=== PATIENT | male | born 1950 | race Caucasian/White ===

== ENCOUNTER 2017-11-19 09:25 | Emergency (ER) | payer MEDICARE, OTHER ==
[~2017-11-19] VITALS: Ht 175.3 cm; Wt 102.1 kg
[2017-11-19 10:14] LABS: BASO % 1 % (0-3); EOS # 0.1 x10^3/uL (0.0-0.7); EOS % 1 % (0-3); HEMATOCRIT 39.6 % (39.0-53.0); HEMOGLOBIN 13.1 g/dL (13.0-17.5); LYMPH # 1.2 x10^3/uL (1.0-4.8); LYMPH % 25 % (24-48); MEAN CORPUSCULAR HEMOGLOBIN 28 pg (25-35); MEAN CORPUSCULAR HGB CONC 33 g/dL (31-37); MEAN CORPUSCULAR VOLUME 84 fL (79-100); MONO # 0.4 x10^3/uL (0.0-1.1); MONO % 9 % (0-9); NEUT # 3.1 x10^3uL (1.8-7.7); NEUT % 64 % (31-73); PLATELET COUNT 210 x10^3/uL (140-400); RED BLOOD COUNT 4.71 x10^6/uL (4.30-5.70); WHITE BLOOD COUNT 4.9 x10^3/uL (4.0-11.0)
[2017-11-19 10:22] LABS: CALCIUM 9.2 mg/dL (8.5-10.1); CREATININE 1.5 mg/dL (0.7-1.3); MAGNESIUM 1.8 mg/dL (1.8-2.4); POTASSIUM 4.1 mmol/L (3.5-5.1)
--- NOTE | 2017-11-19 11:32 | PHYS DOC ---
Past History Past Medical History: Diabetes, Hypertension Past Surgical History: No Surgical History Alcohol Use: None Drug Use: None Adult General Chief Complaint Chief Complaint: MULTIPLE COMPLAINTS HPI HPI Patient is a 67 year old M who presents with generalized fatigue. Da states that over the past 2 months he has become increasingly tired. He denies focal weakness however he describes generalized weakness. He states that he occasionally has mild shortness of breath with activity but is not associated with pain. He states that occasionally he does have aching pain in his left upper arm but is not persistent. He has normal bowel and bladder patterns. He has no new medications. He takes no [id number] medications or supplements. He denies any other associated symptoms. He denies any exacerbating or relieving factors. Review of Systems Review of Systems Constitutional: Denies fever or chills [] Eyes: Denies change in visual acuity, redness, or eye pain [] HENT: Denies nasal congestion or sore throat [] Respiratory: Denies cough or shortness of breath [] Cardiovascular: No additional information not addressed in HPI [] GI: Denies abdominal pain, nausea, vomiting, bloody stools or diarrhea [] : Denies dysuria or hematuria [] Musculoskeletal: Denies back pain or joint pain [] Integument: Denies rash or skin lesions [] Neurologic: Denies headache, focal weakness or sensory changes [] Endocrine: Denies polyuria or polydipsia [] All other systems were reviewed and found to be within normal limits, except as documented in this note. Family History Family History No pertinent family medical history was reported Current Medications Current Medications Current medications were reviewed Allergies Allergies Allergies Coded Allergies Type Severity Reaction Last Updated Verified No Known Drug Allergies 11/19/17 No Physical Exam Physical Exam Constitutional: Well developed, well nourished, no acute distress, non-toxic appearance. [] HENT: Normocephalic, atraumatic, bilateral external ears normal, oropharynx moist, no oral exudates, nose normal. [] Eyes: PERRLA, EOMI, conjunctiva normal, no discharge. [] Neck: Normal range of motion, no tenderness, supple, no stridor. [] Cardiovascular:Heart rate regular rhythm, no murmur [] Lungs & Thorax: Bilateral breath sounds clear to auscultation [] Abdomen: Bowel sounds normal, soft, no tenderness, no masses, no pulsatile masses. [] Skin: Warm, dry, no erythema, no rash. [] Back: No tenderness, no CVA tenderness. [] Extremities: No tenderness, no cyanosis, no clubbing, ROM intact, no edema. [] Neurologic: Alert and oriented X 3, normal motor function, normal sensory function, no focal deficits noted. [] Psychologic: Affect normal, judgement normal, mood normal. [] Current Patient Data Vital Signs Vital Signs Date Time Temp Pulse Resp B/P (MAP) Pulse Ox O2 Delivery O2 Flow Rate FiO2 11/19/17 11:00 62 18 120/74 (89) 99 Room Air 11/19/17 09:47 98.1 Lab Results Laboratory Tests Test 11/19/17 10:04 White Blood Count 4.9 x10^3/uL (4.0-11.0) Red Blood Count 4.71 x10^6/uL (4.30-5.70) Hemoglobin 13.1 g/dL (13.0-17.5) Hematocrit 39.6 % (39.0-53.0) Mean Corpuscular Volume 84 fL (79-100) Mean Corpuscular Hemoglobin 28 pg (25-35) Mean Corpuscular Hemoglobin Concent 33 g/dL (31-37) Red Cell Distribution Width 15.0 % (11.5-14.5) H Platelet Count 210 x10^3/uL (140-400) Neutrophils (%) (Auto) 64 % (31-73) Lymphocytes (%) (Auto) 25 % (24-48) Monocytes (%) (Auto) 9 % (0-9) Eosinophils (%) (Auto) 1 % (0-3) Basophils (%) (Auto) 1 % (0-3) Neutrophils # (Auto) 3.1 x10^3uL (1.8-7.7) Lymphocytes # (Auto) 1.2 x10^3/uL (1.0-4.8) Monocytes # (Auto) 0.4 x10^3/uL (0.0-1.1) Eosinophils # (Auto) 0.1 x10^3/uL (0.0-0.7) Basophils # (Auto) 0.0 x10^3/uL (0.0-0.2) Sodium Level 141 mmol/L (136-145) Potassium Level 4.1 mmol/L (3.5-5.1) Chloride Level 108 mmol/L (98-107) H Carbon Dioxide Level 27 mmol/L (21-32) Anion Gap 6 (6-14) Blood Urea Nitrogen 17 mg/dL (8-26) Creatinine 1.5 mg/dL (0.7-1.3) H Estimated GFR (Cockcroft-Gault) 47.0 Glucose Level 194 mg/dL (70-99) H Calcium Level 9.2 mg/dL (8.5-10.1) Magnesium Level 1.8 mg/dL (1.8-2.4) EKG EKG [] Radiology/Procedures Radiology/Procedures [] Course & Med Decision Making Course & Med Decision Making Pertinent Labs and Imaging studies reviewed. (See chart for details) [] Dragon Disclaimer Dragon Disclaimer This electronic medical record was generated, in whole or in part, using a voice recognition dictation system. Departure Departure: Impression: Primary Impression: Encounter for medical screening examination Disposition: 01 HOME, SELF-CARE Condition: STABLE Referrals: NON,STAFF (PCP) Patient Instructions: Medical Screening Exam Additional Instructions: Da was seen in the emergency department for generalized symptoms. No emergency medical condition was found on history or physical exam. He did have normal labs. He was advised follow-up with his primary care doctor as needed for further management. ROSA FAITH MD Nov 19, 2017 11:32
[2017-11-19 11:41] VITALS: BP 137/86
== END 2017-11-19 11:43 | disposition home or self-care (01) ==
LOC: ER 09:25
DX: R53.83 Other fatigue (principal); R06.02 Shortness of breath; R53.1 Weakness; E11.9 Type 2 diabetes mellitus without complications; I10 Essential (primary) hypertension
CPT/HCPCS: 36415; 80048; 83735; 85025; 99284

== ENCOUNTER 2018-09-10 19:10 | Emergency (ER) | payer MEDICARE, OTHER ==
[~2018-09-10] VITALS: Ht 175.3 cm; Wt 102.1 kg
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
[2018-09-10] MEDS ORDERED: IV NORMAL SALINE 1,000ML 1,000 ML IV SCH (19:44)
--- NOTE | 2018-09-10 19:59 | EKG ---
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
[2018-09-10 20:28] LABS: BASO # 0.1 x10^3/uL (0.0-0.2); BASO % 1 % (0-3); EOS % 1 % (0-3); HEMATOCRIT 37.6 % (39.0-53.0); HEMOGLOBIN 12.3 g/dL (13.0-17.5); LYMPH # 1.6 x10^3/uL (1.0-4.8); LYMPH % 23 % (24-48); MEAN CORPUSCULAR HEMOGLOBIN 28 pg (25-35); MEAN CORPUSCULAR HGB CONC 33 g/dL (31-37); MEAN CORPUSCULAR VOLUME 85 fL (79-100); MONO # 0.7 x10^3/uL (0.0-1.1); MONO % 11 % (0-9); NEUT # 4.5 x10^3uL (1.8-7.7); NEUT % 65 % (31-73); PLATELET COUNT 230 x10^3/uL (140-400); RED BLOOD COUNT 4.43 x10^6/uL (4.30-5.70); RED CELL DISTRIBUTION WIDTH 14.5 % (11.5-14.5); WHITE BLOOD COUNT 6.9 x10^3/uL (4.0-11.0)
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
[2018-09-10 20:39] LABS: CLARITY,URINE CLEAR; COLOR,URINE STRAW
[2018-09-10 20:40] LABS: BACTERIA,URINE 0 /HPF (0-FEW); BILIRUBIN,URINE NEG (NEG); GLUCOSE,URINE NEG (NEG); NITRITE,URINE NEG (NEG); RBC,URINE OCC /HPF (0-2); SQUAMOUS EPITHELIAL CELL,UR FEW /LPF; UROBILINOGEN,URINE 0.2 mg/dL (0.2 mg/dL)
[2018-09-10 20:45] LABS: ALBUMIN 3.7 g/dL (3.4-5.0); AMPHETAMINE/METHAMPHETAMINE NEG (NEG); BARBITURATES NEG (NEG); BENZODIAZEPINES NEG (NEG); CANNABINOIDS NEG (NEG); COCAINE NEG (NEG); METHADONE NEG (NEG); OPIATES NEG (NEG); PHENCYCLIDINE NEG (NEG); POTASSIUM 4.2 mmol/L (3.5-5.1)
[2018-09-10 21:13] LABS: CALCIUM 9.4 mg/dL (8.5-10.1); CREATININE 1.5 mg/dL (0.7-1.3); DIRECT BILIRUBIN 0.1 mg/dL (0.0-0.2); GFR 46.8; TOTAL BILIRUBIN 0.2 mg/dL (0.2-1.0); TOTAL PROTEIN 7.5 g/dL (6.4-8.2)
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
[2018-09-10 22:20] VITALS: BP 142/76
== END 2018-09-10 22:27 | disposition home or self-care (01) ==
LOC: ER 19:10
DX: R51 Headache (principal); M54.2 Cervicalgia; R42 Dizziness and giddiness; D64.9 Anemia, unspecified; R79.89 Other specified abnormal findings of blood chemistry; R94.5 Abnormal results of liver function studies; E11.9 Type 2 diabetes mellitus without complications; I10 Essential (primary) hypertension; V43.52XA Car driver injured in collision with other type car in traffic accident, initial encounter; Y93.I9 Activity, other involving external motion; Y92.488 Other paved roadways as the place of occurrence of the external cause; Y99.8 Other external cause status
CPT/HCPCS: 36415; 70450; 71046; 72125; 80048; 80076; 80307; 81001; 82550; 83735; 83880; 84484; 85025; 85610; 85730; 86705; 86709; 86803; 87340; 93005; 96360; 99284-25; J7030

== ENCOUNTER 2018-12-12 19:15 | Emergency (ER) | payer MEDICARE, OTHER ==
[~2018-12-12] VITALS: Ht 175.3 cm; Wt 104.3 kg
--- NOTE | 2018-12-12 19:22 | ED.ADGEN ---
Past History Past Medical History: Diabetes, Hypertension, Other Past Surgical History: Other Alcohol Use: None Drug Use: None Adult General Chief Complaint Chief Complaint ".. I got this pain down below..here where I had my prior hernia surgery... maybe 15 yrs. ago... but I was carrying up some gross crease of the stairs 2 days ago and the pain came back the same spot almost.. and it has not gone away..." HPI HPI Patient is a 68 year old male who presents with above hx and complaints of right groin pain for the past 2 days after caring some heavy groceries up stairs. Patient has had previous hernia repair and repair approximately 15 years ago. Patient localizes pain in same location. No other areas of abdomen pain. There is some tenderness in the upper abductor muscles of right leg. No adenopathy. Testicles are nontender. No obvious hernia in 2: Area. Does have some fullness along the anterior area of the lower groin and scar from previous hernia repair. Patient denies any penile discharge. Patient denies any fevers. Patient denies any travel or specific ill contacts. Patient does have history of diabetes, glaucoma, renal insufficiency. Review of Systems Review of Systems Constitutional: Denies fever or chills [] Eyes: Denies change in visual acuity, redness, or eye pain [] HENT: Denies nasal congestion or sore throat [] Respiratory: Denies cough or shortness of breath [] Cardiovascular: No additional information not addressed in HPI [] GI: Patient has complaints of right lower abdominal pain,. Patient denies nausea , vomiting, bloody stools or diarrhea [] : Denies dysuria or hematuria [] Musculoskeletal: Denies back pain or joint pain [] Integument: Denies rash or skin lesions [] Neurologic: Denies headache, focal weakness or sensory changes [] Endocrine: Denies polyuria or polydipsia [] All other systems were reviewed and found to be within normal limits, except as documented in this note. Family History Family History Noncontributory Current Medications Current Medications Current Medications Medications (Trade) Dose Ordered Sig/Db Start Time Stop Time Status Last Admin Dose Admin Famotidine (Pepcid Vial) 20 mg 1X ONCE 12/12/18 20:15 12/12/18 20:16 DC Iohexol (Omnipaque 240 Mg/ml) 30 ml 1X ONCE 12/12/18 20:30 12/12/18 20:31 DC 12/12/18 21:32 30 ML Iohexol (Omnipaque 300 Mg/ml) 75 ml 1X ONCE 12/12/18 20:30 12/12/18 20:31 DC 12/12/18 21:33 75 ML Lactated Ringer's 1,000 ml @ 1,000 mls/hr Q1H 12/12/18 20:00 12/12/18 20:59 DC 12/12/18 21:00 1,000 MLS/HR Magnesium Hydroxide (Milk Of Magnesia) 2,400 mg 1X ONCE 12/12/18 21:30 12/12/18 21:31 DC 12/12/18 21:30 2,400 MG Morphine Sulfate (Morphine 10mg Syringe) 10 mg 1X ONCE 12/12/18 20:15 12/12/18 20:16 DC 12/12/18 21:06 10 MG Ondansetron HCl (Zofran) 8 mg 1X ONCE 12/12/18 20:15 12/12/18 20:16 DC 12/12/18 21:07 8 MG Allergies Allergies Allergies Coded Allergies Type Severity Reaction Last Updated Verified No Known Drug Allergies 12/12/18 No Physical Exam Physical Exam Constitutional: Moderately acute distress, non-toxic appearance. [] HENT: Normocephalic, atraumatic, bilateral external ears normal, oropharynx moist, no oral exudates, nose normal. [] Eyes: PERRLA, EOMI, conjunctiva normal, no discharge. [] Neck: Normal range of motion, no tenderness, supple, no stridor. [] Cardiovascular: Bradycardia Heart rate regular rhythm, no murmur [] Lungs & Thorax: Bilateral breath sounds with apex auscultation [] Abdomen: Bowel sounds normal, soft, no upper abdomen tenderness, no masses, no pulsatile masses. [] Patient does have right lower groin tenderness at site of prior hernia repair. No penile discharge. Testicles are not tender. Skin: Warm, dry, no erythema, no rash. [] Back: No tenderness, no CVA tenderness. [] Extremities: No tenderness, no cyanosis, no clubbing, ROM intact, no edema. [] No true psoas sign. But there is some tenderness of the abductor muscles insertion site of right upper groin Neurologic: Alert and oriented X 3, normal motor function, normal sensory function, no dose focal deficits noted. [] Psychologic: Affect anxious, judgement normal, mood normal. [] Current Patient Data Vital Signs Vital Signs Date Time Temp Pulse Resp B/P (MAP) Pulse Ox O2 Delivery O2 Flow Rate FiO2 12/12/18 21:06 18 96 12/12/18 19:35 98.7 61 Room Air Lab Results Laboratory Tests Test 12/12/18 20:06 12/12/18 20:30 White Blood Count 5.6 x10^3/uL (4.0-11.0) Red Blood Count 4.27 x10^6/uL (4.30-5.70) L Hemoglobin 11.7 g/dL (13.0-17.5) L Hematocrit 36.5 % (39.0-53.0) L Mean Corpuscular Volume 85 fL (79-100) Mean Corpuscular Hemoglobin 27 pg (25-35) Mean Corpuscular Hemoglobin Concent 32 g/dL (31-37) Red Cell Distribution Width 14.8 % (11.5-14.5) H Platelet Count 197 x10^3/uL (140-400) Neutrophils (%) (Auto) 62 % (31-73) Lymphocytes (%) (Auto) 27 % (24-48) Monocytes (%) (Auto) 10 % (0-9) H Eosinophils (%) (Auto) 1 % (0-3) Basophils (%) (Auto) 1 % (0-3) Neutrophils # (Auto) 3.5 x10^3uL (1.8-7.7) Lymphocytes # (Auto) 1.5 x10^3/uL (1.0-4.8) Monocytes # (Auto) 0.6 x10^3/uL (0.0-1.1) Eosinophils # (Auto) 0.1 x10^3/uL (0.0-0.7) Basophils # (Auto) 0.0 x10^3/uL (0.0-0.2) Prothrombin Time 11.0 SEC (9.4-11.4) Prothrombin Time INR 1.1 (0.9-1.1) PTT 23 SEC (23-33) Sodium Level 142 mmol/L (136-145) Potassium Level 4.7 mmol/L (3.5-5.1) Chloride Level 108 mmol/L (98-107) H Carbon Dioxide Level 24 mmol/L (21-32) Anion Gap 10 (6-14) Blood Urea Nitrogen 15 mg/dL (8-26) Creatinine 1.6 mg/dL (0.7-1.3) H Estimated GFR (Cockcroft-Gault) 52.6 Glucose Level 168 mg/dL (70-99) H Calcium Level 9.4 mg/dL (8.5-10.1) Total Bilirubin 0.4 mg/dL (0.2-1.0) Direct Bilirubin 0.1 mg/dL (0.0-0.2) Aspartate Amino Transferase (AST) 31 U/L (15-37) Alanine Aminotransferase (ALT) 46 U/L (16-63) Alkaline Phosphatase 91 U/L (46-116) Total Protein 6.5 g/dL (6.4-8.2) Albumin 3.5 g/dL (3.4-5.0) Amylase Level 229 U/L (25-115) H Lipase 1229 U/L (73-393) H Urine Collection Type Unknown Urine Color Yellow Urine Clarity Clear Urine pH 5.5 Urine Specific [place] 1.015 Urine Protein Neg (NEG-TRACE) Urine Glucose (UA) Neg mg/dL (NEG) Urine Ketones (Stick) Neg mg/dL (NEG) Urine Blood Neg (NEG) Urine Nitrite Neg (NEG) Urine Bilirubin Neg (NEG) Urine Urobilinogen Dipstick 0.2 mg/dL (0.2 mg/dL) Urine Leukocyte Esterase Neg (NEG) Urine RBC 0 /HPF (0-2) Urine WBC 0 /HPF (0-4) Urine Squamous Epithelial Cells Occ /LPF Urine Bacteria 0 /HPF (0-FEW) Urine Opiates Screen Neg (NEG) Urine Methadone Screen Neg (NEG) Urine Barbiturates Neg (NEG) Urine Phencyclidine Screen Neg (NEG) Urine Amphetamine/Methamphetamine Neg (NEG) Urine Benzodiazepines Screen Neg (NEG) Urine Cocaine Screen Neg (NEG) Urine Cannabinoids Screen Neg (NEG) Urine Ethyl Alcohol Neg (NEG) EKG EKG My interpretation of EKG shows a sinus bradycardia at 58 bpm. There is some mild leftward axis. Some nonspecific anterior septal changes. But no findings acute STEMI with contralateral changes.[] Radiology/Procedures Radiology/Procedures My interpretation acute abdomen film shows no acute cardiopulmonary findings. No free air in the diaphragm. Does have enlarged cardiac silhouette. Nonspecific bowel gas pattern. Does have stool in colon. CT of abdomen shows no acute upper abdomen findings. Does have findings consistent with a small fat hernia and right inguinal area.See formal report when available[] Course & Med Decision Making Course & Med Decision Making Pertinent Labs and Imaging studies reviewed. (See chart for details) Patient encouraged follow-up labs and CT and x-rays with his primary. Patient may consider follow-up with surgery if persistent right lower quadrant pain. Would wear jock strap. Would not lift heavy objects. Return if any concerns. Must follow-up [] Final Impression Final Impression 1. Groin Pain[]-felt to be small inguinal hernia containing only fat 2. Elevated creatinine 1.6 3. Diabetes 168 4. Anemia 11.7 5. Elevated amylase and lipase 229/1229-no symptomatic complaints in the upper abdomen 6. Hypertension Dragon Disclaimer Dragon Disclaimer This electronic medical record was generated, in whole or in part, using a voice recognition dictation system. Discharge Summary Visit Information Final Diagnosis Problems Medical Problems: (1) Hernia Status: Acute Brief Hospital Course Allergies Allergies Coded Allergies Type Severity Reaction Last Updated Verified No Known Drug Allergies 12/12/18 No Vital Signs Vital Signs Date Time Temp Pulse Resp B/P (MAP) Pulse Ox O2 Delivery O2 Flow Rate FiO2 12/12/18 21:06 18 96 12/12/18 19:35 98.7 61 Room Air Lab Results Laboratory Tests Test 12/12/18 20:06 12/12/18 20:30 White Blood Count 5.6 x10^3/uL (4.0-11.0) Red Blood Count 4.27 x10^6/uL (4.30-5.70) Hemoglobin 11.7 g/dL (13.0-17.5) Hematocrit 36.5 % (39.0-53.0) Mean Corpuscular Volume 85 fL (79-100) Mean Corpuscular Hemoglobin 27 pg (25-35) Mean Corpuscular Hemoglobin Concent 32 g/dL (31-37) Red Cell Distribution Width 14.8 % (11.5-14.5) Platelet Count 197 x10^3/uL (140-400) Neutrophils (%) (Auto) 62 % (31-73) Lymphocytes (%) (Auto) 27 % (24-48) Monocytes (%) (Auto) 10 % (0-9) Eosinophils (%) (Auto) 1 % (0-3) Basophils (%) (Auto) 1 % (0-3) Neutrophils # (Auto) 3.5 x10^3uL (1.8-7.7) Lymphocytes # (Auto) 1.5 x10^3/uL (1.0-4.8) Monocytes # (Auto) 0.6 x10^3/uL (0.0-1.1) Eosinophils # (Auto) 0.1 x10^3/uL (0.0-0.7) Basophils # (Auto) 0.0 x10^3/uL (0.0-0.2) Prothrombin Time 11.0 SEC (9.4-11.4) Prothromb Time International Ratio 1.1 (0.9-1.1) Activated Partial Thromboplast Time 23 SEC (23-33) Sodium Level 142 mmol/L (136-145) Potassium Level 4.7 mmol/L (3.5-5.1) Chloride Level 108 mmol/L (98-107) Carbon Dioxide Level 24 mmol/L (21-32) Anion Gap 10 (6-14) Blood Urea Nitrogen 15 mg/dL (8-26) Creatinine 1.6 mg/dL (0.7-1.3) Estimated GFR (Cockcroft-Gault) 52.6 Glucose Level 168 mg/dL (70-99) Calcium Level 9.4 mg/dL (8.5-10.1) Total Bilirubin 0.4 mg/dL (0.2-1.0) Direct Bilirubin 0.1 mg/dL (0.0-0.2) Aspartate Amino Transf (AST/SGOT) 31 U/L (15-37) Alanine Aminotransferase (ALT/SGPT) 46 U/L (16-63) Alkaline Phosphatase 91 U/L (46-116) Total Protein 6.5 g/dL (6.4-8.2) Albumin 3.5 g/dL (3.4-5.0) Amylase Level 229 U/L (25-115) Lipase 1229 U/L (73-393) Urine Collection Type Unknown Urine Color Yellow Urine Clarity Clear Urine pH 5.5 Urine Specific [place] 1.015 Urine Protein Neg (NEG-TRACE) Urine Glucose (UA) Neg mg/dL (NEG) Urine Ketones (Stick) Neg mg/dL (NEG) Urine Blood Neg (NEG) Urine Nitrite Neg (NEG) Urine Bilirubin Neg (NEG) Urine Urobilinogen Dipstick 0.2 mg/dL (0.2 mg/dL) Urine Leukocyte Esterase Neg (NEG) Urine RBC 0 /HPF (0-2) Urine WBC 0 /HPF (0-4) Urine Squamous Epithelial Cells Occ /LPF Urine Bacteria 0 /HPF (0-FEW) Urine Opiates Screen Neg (NEG) Urine Methadone Screen Neg (NEG) Urine Barbiturates Neg (NEG) Urine Phencyclidine Screen Neg (NEG) Urine Amphetamine/Methamphetamine Neg (NEG) Urine Benzodiazepines Screen Neg (NEG) Urine Cocaine Screen Neg (NEG) Urine Cannabinoids Screen Neg (NEG) Urine Ethyl Alcohol Neg (NEG) Brief Hospital Course Mr. Retana is a 68 old male who presented with Rt lower abd. pain . Found to have small hernia with fat at site of pain. Discharge Information Condition at Discharge: Improved, Stable Disposition/Orders: D/C to Home Dischare Medications Current Medications Lactated Ringer's 1,000 ml @ 1,000 mls/hr Q1H IV Last administered on at 21:00; Admin Dose 1,000 MLS/HR; Start 12/12/18 at 20:00; Stop 12/12/18 at 20:59; Status DC Ondansetron HCl (Zofran) 8 mg 1X ONCE IV Last administered on 12/12/18at 21:07 ; Admin Dose 8 MG; Start 12/12/18 at 20:15; Stop 12/12/18 at 20:16; Status DC Famotidine (Pepcid Vial) 20 mg 1X ONCE IVP ; Start 12/12/18 at 20:15; Stop at 20:16; Status DC Morphine Sulfate (Morphine 10mg Syringe) 10 mg 1X ONCE SQ Last administered on 12/12/18at 21:06; Admin Dose 10 MG; Start 12/12/18 at 20:15; Stop 12/12/18 at 20:16; Status DC Iohexol (Omnipaque 240 Mg/ml) 30 ml 1X ONCE PO Last administered on 12/12/18at 21:32; Admin Dose 30 ML; Start 12/12/18 at 20:30; Stop 12/12/18 at 20:31; Status DC Iohexol (Omnipaque 300 Mg/ml) 75 ml 1X ONCE IV Last administered on 12/12/18at 21:33; Admin Dose 75 ML; Start 12/12/18 at 20:30; Stop 12/12/18 at 20:31; Status DC Magnesium Hydroxide (Milk Of Magnesia) 2,400 mg 1X ONCE PO Last administered on 12/12/18at 21:30; Admin Dose 2,400 MG; Start 12/12/18 at 21:30; Stop 12/12/18 at 21:31; Status DC Active Scripts Active Hydrocodone-Ibuprofen 7.5-200 (Hydrocodone/Ibuprofen) 1 Each Tablet 1 Tab PO PRN Q6HRS PRN Dragon Disclaimer This chart was dictated in whole or in part using Voice Recognition software in a busy, high-work load, and often noisy Emergency Department environment. It may contain unintended and wholly unrecognized errors or omissions. DIONI GIL MD Dec 12, 2018 19:22
[2018-12-12] MEDS ORDERED: IV RINGERS SOLUTION,LACTATED 1,000 ML IV SCH (20:00)
[2018-12-12] MEDS ORDERED: MORPHINE SULFATE 10 MG/ML SYRINGE. SQ ONE (20:15)
[2018-12-12] MEDS ORDERED: ONDANSETRON PF 4 MG/2 ML VIAL. IV ONE (20:15)
[2018-12-12] MEDS ORDERED: FAMOTIDINE 20 MG/2 ML VIAL IVP ONE (20:15)
[2018-12-12] MEDS ORDERED: IOHEXOL 300 MG/ML 75 ML VIAL. IV ONE (20:30)
[2018-12-12] MEDS ORDERED: IOHEXOL 240 MG/ML 50ML VIAL. PO ONE (20:30)
[2018-12-12 20:39] LABS: BASO % 1 % (0-3); EOS # 0.1 x10^3/uL (0.0-0.7); EOS % 1 % (0-3); HEMATOCRIT 36.5 % (39.0-53.0); HEMOGLOBIN 11.7 g/dL (13.0-17.5); LYMPH # 1.5 x10^3/uL (1.0-4.8); LYMPH % 27 % (24-48); MEAN CORPUSCULAR HEMOGLOBIN 27 pg (25-35); MEAN CORPUSCULAR HGB CONC 32 g/dL (31-37); MEAN CORPUSCULAR VOLUME 85 fL (79-100); MONO # 0.6 x10^3/uL (0.0-1.1); MONO % 10 % (0-9); NEUT # 3.5 x10^3uL (1.8-7.7); NEUT % 62 % (31-73); PLATELET COUNT 197 x10^3/uL (140-400); RED BLOOD COUNT 4.27 x10^6/uL (4.30-5.70); RED CELL DISTRIBUTION WIDTH 14.8 % (11.5-14.5); WHITE BLOOD COUNT 5.6 x10^3/uL (4.0-11.0)
[2018-12-12 20:55] LABS: ALBUMIN 3.5 g/dL (3.4-5.0); CALCIUM 9.4 mg/dL (8.5-10.1); CREATININE 1.6 mg/dL (0.7-1.3); DIRECT BILIRUBIN 0.1 mg/dL (0.0-0.2); GFR 52.6; POTASSIUM 4.7 mmol/L (3.5-5.1); TOTAL BILIRUBIN 0.4 mg/dL (0.2-1.0); TOTAL PROTEIN 6.5 g/dL (6.4-8.2)
[2018-12-12 21:24] LABS: BARBITURATES NEG (NEG); BENZODIAZEPINES NEG (NEG); CANNABINOIDS NEG (NEG); COCAINE NEG (NEG); METHADONE NEG (NEG); OPIATES NEG (NEG); PHENCYCLIDINE NEG (NEG)
[2018-12-12 21:26] LABS: AMPHETAMINE/METHAMPHETAMINE NEG (NEG)
[2018-12-12] MEDS ORDERED: MAGNESIUM HYDROXIDE 2,400 MG/30 ML ORAL.SUSP. PO ONE (21:30)
[2018-12-12 21:35] LABS: BACTERIA,URINE 0 /HPF (0-FEW); BILIRUBIN,URINE NEG (NEG); CLARITY,URINE CLEAR; COLOR,URINE YELLOW; GLUCOSE,URINE NEG (NEG); NITRITE,URINE NEG (NEG); RBC,URINE 0 /HPF (0-2); SQUAMOUS EPITHELIAL CELL,UR OCC /LPF; UROBILINOGEN,URINE 0.2 mg/dL (0.2 mg/dL); WBC,URINE 0 /HPF (0-4)
--- NOTE | 2018-12-12 22:22 | RAD ---
CT study of the abdomen and pelvis with contrast Clinical indications: Right lower groin pain. Urinary urgency for 2 days. History of hernia repair 10 years ago in the same area. TECHNIQUE: After IV infusion of 60 cc of Omnipaque 300, helical CT scanning of the abdomen and pelvis was performed. GI contrast was administered per mouth. PQRS compliance Statement One or more of the following individualized dose reduction techniques were utilized for this study: 1. Automated exposure control 2. Adjustment of the mA and/or kV according to patient size 3. Use of iterative reconstruction technique COMPARISON: None available. FINDINGS: The liver and spleen and pancreas are unremarkable. The gallbladder is normal and no extra hepatic biliary ductal dilatation is seen. No adrenal mass is evident. There is a left renal cyst. Small right renal cyst is seen. No hydronephrosis or hydroureter or urinary tract stone is evident. Urinary bladder wall is smooth. No focal aneurysmal dilatation of the abdominal aorta is seen. 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 No enlarged abdominal or pelvic lymphadenopathy is evident. Sigmoid diverticulosis is seen without diverticulitis. The terminal ileum is unremarkable. The appendix is normal. No obstructive bowel pattern is evident. No free air or free fluid or mesenteric edema is seen. No lung base consolidation is evident. The heart size is enlarged. No lytic process is evident. IMPRESSION: No acute abnormality of the abdomen or pelvis is evident. There is a small right inguinal hernia containing only fat. No inflammatory change is seen here. Electronically signed by: Hilario Padron MD (12/12/2018 10:19 PM) [facility]
[2018-12-12] MEDS ORDERED: HYDR-1179 PO (22:33)
[2018-12-12 23:00] VITALS: BP 153/83
--- NOTE | 2018-12-13 00:14 | RAD ---
Indication:pain..Rt. lower -groin, hx hernia repair to this region 10 yrs ag TECHNIQUE:Acute abdominal series COMPARISON: None FINDINGS: Heart is normal in size. Lungs are clear. No pneumothorax or pleural effusion. No pneumoperitoneum. No abnormally dilated bowel loops or air-fluid levels. No abnormal calcific densities projecting over the kidneys to suggest apparent renal stones. Visualized bones are within normal limits. IMPRESSION: No acute findings. Electronically signed by: Thom Hardy DO (12/13/2018 12:11 AM) [facility]
--- NOTE | 2018-12-13 12:44 | EKG ---
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
== END 2018-12-12 23:10 | disposition home or self-care (01) ==
LOC: ER 19:15
DX: K40.90 Unilateral inguinal hernia, without obstruction or gangrene, not specified as recurrent (principal); R79.89 Other specified abnormal findings of blood chemistry; E11.9 Type 2 diabetes mellitus without complications; D64.9 Anemia, unspecified; R74.8 Abnormal levels of other serum enzymes; I10 Essential (primary) hypertension
CPT/HCPCS: 36415; 74022; 74177; 80048; 80076; 80307; 81001; 82150; 83690; 85025; 85610; 85730; 93005; 96372; 96374; 99284; J2270; J2405; J7120; Q9966; Q9967

== ENCOUNTER 2019-01-19 10:47 | Emergency (ER) | payer MEDICARE, OTHER ==
[~2019-01-19] VITALS: Ht 170.2 cm; Wt 99.3 kg
[~2019-01-19 10:47] MED LIST: HYDR-1179 PO
[2019-01-19 11:00] VITALS: BP 109/72
--- NOTE | 2019-01-19 11:37 | PHYS DOC ---
Past History Past Medical History: Diabetes, Hypertension, Other Past Surgical History: Other Alcohol Use: None Drug Use: None Adult General Chief Complaint Chief Complaint: LOWER EXTREMITY SWELLING [facility] HPI 68-year-old male presents with right lower extremity pain. The patient states that he gets a tightness in his calf and thigh with walking. This is mostly in the right leg. This is a new issue for the patient in the last 2 weeks. If he rests the pain improves. He denies chest pain or shortness of breath. The patient did have a 4 hour plus car ride [place] 2 weeks ago, but no other long trips. No history of DVT or PE. No clotting disorders. His fever or chills. [facility] Review of Systems Review of Systems Constitutional: Denies fever or chills [] Eyes: Denies change in visual acuity, redness, or eye pain [] HENT: Denies nasal congestion or sore throat [] Respiratory: Denies cough or shortness of breath [] Cardiovascular: No additional information not addressed in HPI [] GI: Denies abdominal pain, nausea, vomiting, bloody stools or diarrhea [] : Denies dysuria or hematuria [] Musculoskeletal: Right leg pain[] Integument: Denies rash or skin lesions [] Neurologic: Denies headache, focal weakness or sensory changes [] Endocrine: Denies polyuria or polydipsia [] All other systems were reviewed and found to be within normal limits, except as documented in this note. Allergies Allergies Allergies Coded Allergies Type Severity Reaction Last Updated Verified No Known Drug Allergies 12/12/18 No Physical Exam Physical Exam Constitutional: Well developed, well nourished, no acute distress, non-toxic appearance. [] HENT: Normocephalic, atraumatic, bilateral external ears normal, oropharynx moist, no oral exudates, nose normal. [] Eyes: PERRLA, EOMI, conjunctiva normal, no discharge. [] Neck: Normal range of motion, no tenderness, supple, no stridor. [] Cardiovascular:Heart rate regular rhythm, no murmur [] Lungs & Thorax: Bilateral breath sounds clear to auscultation [] Abdomen: Bowel sounds normal, soft, no tenderness, no masses, no pulsatile masses. [] Skin: Warm, dry, no erythema, no rash. [] Back: No tenderness, no CVA tenderness. [] Extremities: Left calf 2 cm greater diameter than the right. No pain with palpation of either leg.[] Neurologic: Alert and oriented X 3, normal motor function, normal sensory function, no focal deficits noted. [] Psychologic: Affect normal, judgement normal, mood normal. [] EKG EKG [] Radiology/Procedures Radiology/Procedures [] Impressions: Bilateral Leg Venous Doppler Ultrasound, 01/19/2019 Indication: Leg pain with walking Comparison: None available Procedure: Real-time grayscale, color flow color duplex Doppler and spectral analysis are obtained with and without compression in the area of the common femoral vein, superficial femoral vein - femoral vein junction, main femoral vein (superficial femoral vein) and popliteal vein. Veins of the proximal calf are also imaged. Findings: There is normal duplex flow, color flow and compressibility of all visualized vein segments. No evidence of deep venous thrombus is present. Impression: Negative venous Doppler of bilateral lower extremity Electronically signed by: Analia Mallory MD (01/19/2019 1:00 PM) [facility] DICTATED AND SIGNED BY: ANALIA MALLORY MD DATE: 01/19/19 1300 CC: AVELINA MATA DO; SHERMAN GAYTAN MD ~ Course & Med Decision Making Course & Med Decision Making Pertinent Labs and Imaging studies reviewed. (See chart for details) The patient's labs are unremarkable. His bilateral lower extremities ultrasound is negative for DVT. This could be claudication from decreased blood flow or a musculoskeletal pain. I recommended the [facility] if the [facility] is not improved. He is stable for discharge at this time. [] Dragon Disclaimer Dragon Disclaimer This electronic medical record was generated, in whole or in part, using a voice recognition dictation system. Departure Departure: Impression: Primary Impression: Right leg pain Disposition: 01 HOME, SELF-CARE Condition: STABLE Referrals: SHERMAN GAYTAN MD (PCP) Patient Instructions: Leg Cramps AVELINA MATA DO Jan 19, 2019 11:37
[2019-01-19 12:19] LABS: BASO % 1 % (0-3); EOS # 0.1 x10^3/uL (0.0-0.7); EOS % 1 % (0-3); HEMATOCRIT 34.5 % (39.0-53.0); HEMOGLOBIN 11.4 g/dL (13.0-17.5); LYMPH # 1.1 x10^3/uL (1.0-4.8); LYMPH % 19 % (24-48); MEAN CORPUSCULAR HEMOGLOBIN 28 pg (25-35); MEAN CORPUSCULAR HGB CONC 33 g/dL (31-37); MEAN CORPUSCULAR VOLUME 85 fL (79-100); MONO # 0.5 x10^3/uL (0.0-1.1); MONO % 9 % (0-9); NEUT % 70 % (31-73); PLATELET COUNT 222 x10^3/uL (140-400); RED BLOOD COUNT 4.07 x10^6/uL (4.30-5.70); RED CELL DISTRIBUTION WIDTH 14.7 % (11.5-14.5); WHITE BLOOD COUNT 5.7 x10^3/uL (4.0-11.0)
[2019-01-19 12:31] LABS: ALBUMIN 3.3 g/dL (3.4-5.0); ALBUMIN/GLOBULIN RATIO 0.9 (1.0-1.7); CALCIUM 9.2 mg/dL (8.5-10.1); CREATININE 1.8 mg/dL (0.7-1.3); GFR 45.9; POTASSIUM 4.2 mmol/L (3.5-5.1); TOTAL BILIRUBIN 0.3 mg/dL (0.2-1.0); TOTAL PROTEIN 6.8 g/dL (6.4-8.2)
--- NOTE | 2019-01-19 13:02 | RAD ---
Bilateral Leg Venous Doppler Ultrasound, 01/19/2019 Indication: Leg pain with walking Comparison: None available Procedure: Real-time grayscale, color flow color duplex Doppler and spectral analysis are obtained with and without compression in the area of the common femoral vein, superficial femoral vein - femoral vein junction, main femoral vein (superficial femoral vein) and popliteal vein. Veins of the proximal calf are also imaged. Findings: There is normal duplex flow, color flow and compressibility of all visualized vein segments. No evidence of deep venous thrombus is present. Impression: Negative venous Doppler of bilateral lower extremity Electronically signed by: Analia Mallory MD (01/19/2019 1:00 PM) [facility]
== END 2019-01-19 13:26 | disposition home or self-care (01) ==
LOC: ER 10:47
DX: M79.604 Pain in right leg (principal); E11.9 Type 2 diabetes mellitus without complications; I10 Essential (primary) hypertension
CPT/HCPCS: 36415; 80053; 85025; 85610; 85730; 93970; 99285-25

== ENCOUNTER 2019-06-09 12:43 | Emergency (ER) | payer MEDICARE, OTHER ==
[~2019-06-09] VITALS: Ht 172.7 cm; Wt 98.6 kg
[2019-06-09] MEDS ORDERED: IV NORMAL SALINE 1,000ML 1,000 ML IV ONE (13:15)
[2019-06-09 13:19] LABS: BASO % 1 % (0-3); EOS # 0.2 x10^3/uL (0.0-0.7); EOS % 3 % (0-3); HEMATOCRIT 34.1 % (39.0-53.0); HEMOGLOBIN 11.3 g/dL (13.0-17.5); LYMPH # 1.1 x10^3/uL (1.0-4.8); LYMPH % 18 % (24-48); MEAN CORPUSCULAR HEMOGLOBIN 30 pg (25-35); MEAN CORPUSCULAR HGB CONC 33 g/dL (31-37); MEAN CORPUSCULAR VOLUME 90 fL (79-100); MONO # 0.5 x10^3/uL (0.0-1.1); MONO % 9 % (0-9); NEUT % 69 % (31-73); PLATELET COUNT 191 x10^3/uL (140-400); RED BLOOD COUNT 3.81 x10^6/uL (4.30-5.70); RED CELL DISTRIBUTION WIDTH 13.9 % (11.5-14.5); WHITE BLOOD COUNT 5.8 x10^3/uL (4.0-11.0)
[2019-06-09 13:34] LABS: ALBUMIN 3.6 g/dL (3.4-5.0); ALBUMIN/GLOBULIN RATIO 1.1 (1.0-1.7); CALCIUM 9.2 mg/dL (8.5-10.1); CREATININE 2.5 mg/dL (0.7-1.3); GFR 31.4; POTASSIUM 4.9 mmol/L (3.5-5.1); TOTAL BILIRUBIN 0.5 mg/dL (0.2-1.0); TOTAL PROTEIN 6.9 g/dL (6.4-8.2)
--- NOTE | 2019-06-09 13:56 | RAD ---
AP portable chest radiograph 06/19/2019 Clinical History: Weakness. An AP erect portable digital radiograph of the chest was obtained. Comparison study is dated 09/10/2018. The cardiac silhouette is mildly enlarged. The thoracic aorta is tortuous. No acute pulmonary infiltrate is seen. No pleural effusion or pneumothorax is noted. The osseous structures are grossly intact. Impression: No acute abnormality is seen. Electronically signed by: Alfredo Sands MD (06/09/2019 1:53 PM) [facility]
[2019-06-09] MEDS ORDERED: IV NORMAL SALINE 500ML 500 ML IV ONE (14:15)
[2019-06-09 15:51] LABS: BACTERIA,URINE 0 /HPF (0-FEW); BILIRUBIN,URINE NEG (NEG); CLARITY,URINE CLEAR; COLOR,URINE YELLOW; GLUCOSE,URINE 100 mg/dL (NEG); HYALINE CASTS, URINE OCC /HPF; NITRITE,URINE NEG (NEG); RBC,URINE 0 /HPF (0-2); SQUAMOUS EPITHELIAL CELL,UR OCC /LPF; UROBILINOGEN,URINE 0.2 mg/dL (0.2 mg/dL); WBC,URINE OCC /HPF (0-4)
[2019-06-09 16:14] VITALS: BP 117/67
[2019-06-09 16:14] LABS: CALCIUM 9.1 mg/dL (8.5-10.1); CREATININE 2.2 mg/dL (0.7-1.3); GFR 36.4; POTASSIUM 4.6 mmol/L (3.5-5.1)
--- NOTE | 2019-06-09 17:30 | PHYS DOC ---
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 He got lightheaded he nearly passed out he was diaphoretic blood pressure was in the 60s on EMS arrival it has improved to 103 systolic on my evaluation no chest pain no recent fever no dysuria no coughing otherwise feeling okay just a little weaker than normal. Review of Systems Review of Systems Constitutional: Denies fever or chills [] Eyes: Denies change in visual acuity, redness, or eye pain [] HENT: Denies nasal congestion or sore throat [] Respiratory: Denies cough or shortness of breath [] Cardiovascular: No additional information not addressed in HPI [] GI: Denies abdominal pain, nausea, vomiting, bloody stools or diarrhea [] : Denies dysuria or hematuria [] Musculoskeletal: Denies back pain or joint pain [] All other systems were reviewed and found to be within normal limits, except as documented in this note. Current Medications Current Medications Current Medications Medications (Trade) Dose Ordered Sig/Db Start Time Stop Time Status Last Admin Dose Admin Sodium Chloride 500 ml @ 0 mls/hr 1X ONCE 06/09/19 14:15 06/09/19 14:17 DC 06/09/19 14:27 500 MLS/HR Allergies Allergies Allergies Coded Allergies Type Severity Reaction Last Updated Verified No Known Drug Allergies 12/12/18 No Physical Exam Physical Exam Constitutional: Well developed, well nourished, no acute distress, non-toxic appearance. [] HENT: Normocephalic, atraumatic, bilateral external ears normal, oropharynx moist, no oral exudates, nose normal. [] Eyes: PERRLA, EOMI, conjunctiva normal, no discharge. [] Neck: Normal range of motion, no tenderness, supple, no stridor. [] Cardiovascular:Heart rate regular rhythm, no murmur [] Lungs & Thorax: Bilateral breath sounds clear to auscultation [] Abdomen: Bowel sounds normal, soft, no tenderness, no masses, no pulsatile masses. [] Skin: Warm, dry, no erythema, no rash. [] Back: No tenderness, no CVA tenderness. [] Extremities: No tenderness, no cyanosis, no clubbing, ROM intact, no edema. [] Neurologic: Alert and oriented X 3, normal motor function, normal sensory function, no focal deficits noted. [] Psychologic: Affect normal, judgement normal, mood normal. [] Current Patient Data Vital Signs Vital Signs Date Time Temp Pulse Resp B/P (MAP) Pulse Ox O2 Delivery O2 Flow Rate FiO2 06/09/19 16:14 81 18 117/67 (84) 98 Room Air 06/09/19 13:07 98.4 Lab Results Laboratory Tests Test 06/09/19 12:47 06/09/19 15:29 06/09/19 15:54 White Blood Count 5.8 x10^3/uL (4.0-11.0) Red Blood Count 3.81 x10^6/uL (4.30-5.70) L Hemoglobin 11.3 g/dL (13.0-17.5) L Hematocrit 34.1 % (39.0-53.0) L Mean Corpuscular Volume 90 fL (79-100) Mean Corpuscular Hemoglobin 30 pg (25-35) Mean Corpuscular Hemoglobin Concent 33 g/dL (31-37) Red Cell Distribution Width 13.9 % (11.5-14.5) Platelet Count 191 x10^3/uL (140-400) Neutrophils (%) (Auto) 69 % (31-73) Lymphocytes (%) (Auto) 18 % (24-48) L Monocytes (%) (Auto) 9 % (0-9) Eosinophils (%) (Auto) 3 % (0-3) Basophils (%) (Auto) 1 % (0-3) Neutrophils # (Auto) 4.0 x10^3uL (1.8-7.7) Lymphocytes # (Auto) 1.1 x10^3/uL (1.0-4.8) Monocytes # (Auto) 0.5 x10^3/uL (0.0-1.1) Eosinophils # (Auto) 0.2 x10^3/uL (0.0-0.7) Basophils # (Auto) 0.0 x10^3/uL (0.0-0.2) Sodium Level 138 mmol/L (136-145) 140 mmol/L (136-145) Potassium Level 4.9 mmol/L (3.5-5.1) 4.6 mmol/L (3.5-5.1) Chloride Level 107 mmol/L (98-107) 107 mmol/L (98-107) Carbon Dioxide Level 23 mmol/L (21-32) 22 mmol/L (21-32) Anion Gap 8 (6-14) 11 (6-14) Blood Urea Nitrogen 16 mg/dL (8-26) 15 mg/dL (8-26) Creatinine 2.5 mg/dL (0.7-1.3) H 2.2 mg/dL (0.7-1.3) H Estimated GFR (Cockcroft-Gault) 31.4 36.4 BUN/Creatinine Ratio 6 (6-20) Glucose Level 274 mg/dL (70-99) H 195 mg/dL (70-99) H Calcium Level 9.2 mg/dL (8.5-10.1) 9.1 mg/dL (8.5-10.1) Total Bilirubin 0.5 mg/dL (0.2-1.0) Aspartate Amino Transferase (AST) 18 U/L (15-37) Alanine Aminotransferase (ALT) 19 U/L (16-63) Alkaline Phosphatase 76 U/L (46-116) Troponin I Quantitative < 0.017 ng/mL (0-0.055) < 0.017 ng/mL (0-0.055) Total Protein 6.9 g/dL (6.4-8.2) Albumin 3.6 g/dL (3.4-5.0) Albumin/Globulin Ratio 1.1 (1.0-1.7) Urine Collection Type Unknown Urine Color Yellow Urine Clarity Clear Urine pH 5.5 Urine Specific [place] 1.010 Urine Protein Neg (NEG-TRACE) Urine Glucose (UA) 100 mg/dL (NEG) Urine Ketones (Stick) Neg mg/dL (NEG) Urine Blood Neg (NEG) Urine Nitrite Neg (NEG) Urine Bilirubin Neg (NEG) Urine Urobilinogen Dipstick 0.2 mg/dL (0.2 mg/dL) Urine Leukocyte Esterase Neg (NEG) Urine RBC 0 /HPF (0-2) Urine WBC Occ /HPF (0-4) Urine Squamous Epithelial Cells Occ /LPF Urine Bacteria 0 /HPF (0-FEW) Urine Hyaline Casts Occ /HPF Urine Mucus Slight /LPF EKG EKG EKG showed a sinus rhythm with a normal rate no obvious ischemic changes were noted[] Radiology/Procedures Radiology/Procedures [] Impressions: Comparison study is dated 09/10/2018. The cardiac silhouette is mildly enlarged. The thoracic aorta is tortuous. No acute pulmonary infiltrate is seen. No pleural effusion or pneumothorax is noted. The osseous structures are grossly intact. Impression: No acute abnormality is seen. Electronically signed by: Alfredo Benavides MD (06/09/2019 1:53 PM) [facility] DICTATED AND SIGNED BY: ALFREDO BENAVIDES MD DATE: 06/09/19 3941 CC: CAS ROBLES MD; SHERMAN GAYTAN MD ~ Course & Med Decision Making Course & Med Decision Making Pertinent Labs and Imaging studies reviewed. (See chart for details) []68-year-old male with the above past medical history presenting with an episode of near-syncope blood pressure in the 60s likely related to volume down status decreased by mouth this morning due to episcopal complications. Patient was observed in the ER we did 2 troponins we found no source of infection I noted the creatinine was up to 2.5 acute kidney injury noted relative to baseline of around 1.6. We gave a liter of IV fluids and this didn't prove to 2.2 patient was feeling much much better with normal vital signs I encouraged oral hydration and I recommended follow-up primary care doctor within 1 week return impression s discussed in detail patient was understanding of instructions. No evidence of acute coronary syndrome or malignant arrhythmia based on this ER evaluation. Dragon Disclaimer Dragon Disclaimer This electronic medical record was generated, in whole or in part, using a voice recognition dictation system. Departure Departure: Impression: Primary Impression: Dehydration Disposition: 01 HOME, SELF-CARE Condition: STABLE Patient Instructions: Dehydration, Adult, [id number] Additional Instructions: see your doctor this week for follow up stay hydrated CAS ROBLES MD Jun 09, 2019 17:30
--- NOTE | 2019-06-10 03:31 | EKG ---
[address] [address] Test Date: 2019-06-09 Test Time: 12:56:47 Pat Name: ELISABETH SAHU Department: Room: Gender: M Physician'S Aide: : 1950 Requested By: ACS ROBLES Order Number: [id number] Reading MD: Measurements Intervals [place] Rate: 72 P: 34 NV: 178 QRS: -1 QRSD: 80 T: 3 QT: 358 QTc: 393 Interpretive Statements SINUS RHYTHM LEFTWARD AXIS NO SPECIFIC ECG ABNORMALITIES RI6.01 No previous ECG available for comparison
== END 2019-06-09 16:44 | disposition home or self-care (01) ==
LOC: ER 12:43
DX: E86.0 Dehydration (principal); E11.9 Type 2 diabetes mellitus without complications; E78.00 Pure hypercholesterolemia, unspecified; I10 Essential (primary) hypertension; Z86.73 Personal history of transient ischemic attack (TIA), and cerebral infarction without residual deficits
CPT/HCPCS: 36415; 71045; 80048; 80053; 81001; 84484; 85025; 93005; 96360; 96361; 99285; J7040; J7030

== ENCOUNTER → 2019-11-07 | Outpatient (CLI) | payer MEDICARE, OTHER ==
[~2019-11-07] MED LIST changes: +IBUP-577 PO
--- NOTE | 2019-11-07 09:39 | RAD ---
EXAM: Renal sonogram. HISTORY: BPH. Obstruction. TECHNIQUE: Sonographic imaging of the kidneys and bladder was performed. COMPARISON: CT dated 12/12/2018. FINDINGS: The kidneys are normal in size. There is a simple cyst within the lower pole the left kidney measuring 2.6 cm. No solid renal lesion or hydronephrosis is seen. The ureteral jets are not seen. The bladder is otherwise unremarkable.. IMPRESSION: 1. 2.6 cm simple appearing left renal cyst. 2. No evidence of hydronephrosis. Electronically signed by: Amanda Moralez MD (11/07/2019 9:36 AM) [facility] [place]
== END | disposition home or self-care (01) ==
LOC: US 08:32
PROVIDERS: ATTEND Urology
DX: N28.1 Cyst of kidney, acquired (principal); N40.1 Benign prostatic hyperplasia with lower urinary tract symptoms
CPT/HCPCS: 76770

== ENCOUNTER 2019-11-08 11:28 | Emergency (ER) | payer MEDICARE, OTHER ==
[~2019-11-08] VITALS: Ht 167.6 cm; Wt 102.3 kg
[~2019-11-08 11:28] MED LIST changes: -IBUP-577 PO
[2019-11-08 11:44] VITALS: BP 130/90
--- NOTE | 2019-11-08 13:06 | RAD ---
EXAM: Right hand, 4 views; right hip and pelvis, 3 views; right knee, 4 views. HISTORY: Pain and swelling. COMPARISON: None. FINDINGS: Right hand: 4 views of the right hand are obtained. There is no fracture, dislocation or subluxation. There is first carpometacarpal joint space narrowing with subchondral sclerosis, subchondral cyst formation and spurring. Pelvis and right hip: A frontal view the pelvis and 2 views of the right hip are obtained. There is no fracture, dislocation or subluxation. The femoral head is normal in configuration. Right knee: 4 views of the right knee are obtained. There is mild medial compartment joint space narrowing and trochlea bilateral spurring. There is no joint effusion. There is no fracture, dislocation or subluxation. IMPRESSION: 1. No acute osseous finding. 2. Moderate right first carpometacarpal osteoarthritis. 3. 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 Electronically signed by: Amanda Moralez MD (11/08/2019 1:03 PM) [facility] – [place]
--- NOTE | 2019-11-08 13:15 | PHYS DOC ---
Past History Past Medical History: Diabetes, Glaucoma, Hypertension Past Surgical History: No Surgical History Alcohol Use: None Drug Use: None Adult General Chief Complaint Chief Complaint: MECHANICAL FALL HPI HPI Patient is a 69-year-old male who presented to ER today for evaluation of right hip pain, right knee pain and right hand pain after he fell week ago. Patient said he also hit the back of his head but did not lose consciousness. Patient is not on any blood thinner. He denies any headache or neck pain today. Patient denies any back pain. He complained of right hip pain when he sat on his buttock. He complains of right hand pain. No wrist pain. He had been walking with a walker. All other ROS is negative unless otherwise noted in HPI Review of Systems Review of Systems See above Allergies Allergies Allergies Coded Allergies Type Severity Reaction Last Updated Verified No Known Drug Allergies 12/12/18 No Physical Exam Physical Exam See above Constitutional: Well developed, well nourished, no acute distress, non-toxic appearance. [] HENT: Normocephalic, atraumatic, bilateral external ears normal, oropharynx moist, no oral exudates, nose normal. [] Eyes: PERRLA, EOMI, conjunctiva normal, no discharge. [] Neck: Normal range of motion, no tenderness, supple, no stridor. [] Cardiovascular:Heart rate regular rhythm, no murmur [] Lungs & Thorax: Bilateral breath sounds clear to auscultation [] Abdomen: Bowel sounds normal, soft, no tenderness, no masses, no pulsatile masses. [] Skin: Warm, dry, no erythema, no rash. [] Back: No tenderness, no CVA tenderness. [] Extremities: No tenderness, no cyanosis, no clubbing, ROM intact, no edema. Right pelvic is tender to palpation. Right hand is tender to palpation on right 5th finger, no deformity. Neurologic: Alert and oriented X 3, normal motor function, normal sensory function, no focal deficits noted. [] Psychologic: Affect normal, judgement normal, mood normal. [] Current Patient Data Vital Signs Vital Signs Date Time Temp Pulse Resp B/P (MAP) Pulse Ox O2 Delivery O2 Flow Rate FiO2 11/08/19 11:44 82 18 130/90 (103) 100 EKG EKG [] Radiology/Procedures Radiology/Procedures [][address] [address] IMAGING REPORT Signed PATIENT: ELISABETH SAHU ACCOUNT: [id number] : 1950 LOCATION: ER AGE: 69 SEX: M EXAM STATUS: REG ER ORD. PHYSICIAN: ROSA RODRIGUEZ DO REASON: fell, right knee pain PROCEDURE: KNEE RIGHT 3V EXAM: Right hand, 4 views; right hip and pelvis, 3 views; right knee, 4 views. HISTORY: Pain and swelling. COMPARISON: None. FINDINGS: Right hand: 4 views of the right hand are obtained. There is no fracture, dislocation or subluxation. There is first carpometacarpal joint space narrowing with subchondral sclerosis, subchondral cyst formation and spurring. Pelvis and right hip: A frontal view the pelvis and 2 views of the right hip are obtained. There is no fracture, dislocation or subluxation. The femoral head is normal in configuration. Right knee: 4 views of the right knee are obtained. There is mild medial compartment joint space narrowing and trochlea bilateral spurring. There is no joint effusion. There is no fracture, dislocation or subluxation. IMPRESSION: 1. No acute osseous finding. 2. Moderate right first carpometacarpal osteoarthritis. 3. 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 Electronically signed by: Amanda Cole MD (11/08/2019 1:03 PM) [facility] [place] DICTATED AND SIGNED BY: AMANDA COLE MD DATE: 11/08/19 8580 CC: ROSA RODRIGUEZ DO; SHERMAN GAYTAN MD ~ Course & Med Decision Making Course & Med Decision Making Pertinent Labs and Imaging studies reviewed. (See chart for details) [] Dragon Disclaimer Dragon Disclaimer This electronic medical record was generated, in whole or in part, using a voice recognition dictation system. Departure Departure: Impression: Primary Impression: Hip pain Additional Impressions: Pain, hand joint Arthritis Disposition: 01 HOME, SELF-CARE Condition: STABLE Referrals: SHERMAN GAYTAN MD (PCP) Patient Instructions: Arthritis, Nonspecific, Hip Pain Additional Instructions: Thank you for visiting our Emergency Department. We appreciate you trusting us with your care. If any additional problems come up don't hesitate to return to visit us. Please follow up with your primary care provider so they can plan a dditional care if needed and know about the problem that you had. If symptoms worsen come back to the Emergency Department. Any concerning symptoms that start such as chest pain, shortness of air, weakness or numbness on one side of the body, running high fevers or any other concerning symptoms return to the ER. Scripts Ibuprofen (Ibu) 800 Mg Tablet 1 TAB PO Q8HRS PRN for PAIN for 7 Days, #21 TAB 0 Refills Prov: ROSA RODRIGUEZ DO 11/08/19 Problem Qualifiers ROSA RODRIGUEZ DO Nov 08, 2019 13:15
[2019-11-08] MEDS ORDERED: IBUP-577 PO (13:46)
== END 2019-11-08 13:50 | disposition home or self-care (01) ==
LOC: ER 11:28
DX: G89.11 Acute pain due to trauma (principal); M25.551 Pain in right hip; M25.561 Pain in right knee; M79.641 Pain in right hand; I10 Essential (primary) hypertension; E11.9 Type 2 diabetes mellitus without complications; W19.XXXA Unspecified fall, initial encounter; Y93.89 Activity, other specified; Y92.89 Other specified places as the place of occurrence of the external cause; Y99.8 Other external cause status
CPT/HCPCS: 73130; 73502; 73562; 99284

== ENCOUNTER → 2020-09-29 | Outpatient (CLI) | payer MEDICARE, OTHER ==
[~2020-09-29] MED LIST changes: +IBUP-577 PO
[2020-09-29 10:34] LABS: BASO % 1 % (0-3); EOS # 0.1 x10^3/uL (0.0-0.7); EOS % 2 % (0-3); HEMATOCRIT 37.4 % (39.0-53.0); HEMOGLOBIN 12.1 g/dL (13.0-17.5); LYMPH # 1.5 x10^3/uL (1.0-4.8); LYMPH % 27 % (24-48); MEAN CORPUSCULAR HEMOGLOBIN 28 pg (25-35); MEAN CORPUSCULAR HGB CONC 32 g/dL (31-37); MEAN CORPUSCULAR VOLUME 87 fL (79-100); MONO # 0.6 x10^3/uL (0.0-1.1); MONO % 10 % (0-9); NEUT # 3.4 x10^3uL (1.8-7.7); NEUT % 60 % (31-73); PLATELET COUNT 231 x10^3/uL (140-400); RED CELL DISTRIBUTION WIDTH 13.9 % (11.5-14.5); WHITE BLOOD COUNT 5.7 x10^3/uL (4.0-11.0)
[2020-09-29 10:44] LABS: CALCIUM 9.5 mg/dL (8.5-10.1); CREATININE 2.3 mg/dL (0.7-1.3); GFR 34.4; POTASSIUM 4.3 mmol/L (3.5-5.1)
[2020-09-29 21:06] LABS: FREE T4 0.9 ng/dL (0.76-1.46); THYROID STIM HORMONE (TSH) 1.866 uIU/mL (0.358-3.740)
== END ==
LOC: LAB 09:38
PROVIDERS: ATTEND Family Medicine
DX: I10 Essential (primary) hypertension (principal); M85.80 Other specified disorders of bone density and structure, unspecified site; E78.2 Mixed hyperlipidemia; F01.50 Vascular dementia, unspecified severity, without behavioral disturbance, psychotic disturbance, mood disturbance, and anxiety
CPT/HCPCS: 36415; 80048; 80061; 82607; 84439; 84443; 85025

== ENCOUNTER → 2020-10-05 | Outpatient (CLI) | payer MEDICARE, OTHER ==
[2020-10-05 10:49] LABS: ALBUMIN 3.6 g/dL (3.4-5.0); CALCIUM 9.1 mg/dL (8.5-10.1); CREATININE 2.1 mg/dL (0.7-1.3); GFR 38.2; POTASSIUM 4.3 mmol/L (3.5-5.1)
== END ==
LOC: LAB 09:35
PROVIDERS: ATTEND Internal Medicine Nephrology
DX: I12.9 Hypertensive chronic kidney disease with stage 1 through stage 4 chronic kidney disease, or unspecified chronic kidney disease (principal); N18.30 Chronic kidney disease, stage 3 unspecified; E13.319 Other specified diabetes mellitus with unspecified diabetic retinopathy without macular edema; Z68.30 Body mass index [BMI] 30.0-30.9, adult
CPT/HCPCS: 36415; 80069

== ENCOUNTER → 2020-11-23 | Outpatient (CLI) | payer MEDICARE, OTHER ==
[2020-11-23 12:56] LABS: CALCIUM 9.7 mg/dL (8.5-10.1); CREATININE 2.6 mg/dL (0.7-1.3); GFR 29.9; POTASSIUM 4.1 mmol/L (3.5-5.1)
== END ==
LOC: LAB 11:47
PROVIDERS: ATTEND Internal Medicine Nephrology
DX: N17.9 Acute kidney failure, unspecified (principal); I12.9 Hypertensive chronic kidney disease with stage 1 through stage 4 chronic kidney disease, or unspecified chronic kidney disease; N18.32 Chronic kidney disease, stage 3b; E13.319 Other specified diabetes mellitus with unspecified diabetic retinopathy without macular edema
CPT/HCPCS: 36415; 80048

== ENCOUNTER → 2021-02-05 | Outpatient (CLI) | payer MEDICARE, OTHER ==
[2021-02-05 12:24] LABS: ALBUMIN 3.2 g/dL (3.4-5.0); CALCIUM 9.2 mg/dL (8.5-10.1); CREATININE 2.3 mg/dL (0.7-1.3); GFR 34.4; POTASSIUM 3.8 mmol/L (3.5-5.1)
== END ==
LOC: LAB 11:13
PROVIDERS: ATTEND Internal Medicine Nephrology
DX: I12.9 Hypertensive chronic kidney disease with stage 1 through stage 4 chronic kidney disease, or unspecified chronic kidney disease (principal); N18.32 Chronic kidney disease, stage 3b; E11.21 Type 2 diabetes mellitus with diabetic nephropathy; N17.9 Acute kidney failure, unspecified
CPT/HCPCS: 36415; 80069

== ENCOUNTER → 2021-05-05 | Outpatient (CLI) | payer MEDICARE, OTHER ==
[2021-05-05 11:57] LABS: ALBUMIN 3.8 g/dL (3.4-5.0); CALCIUM 9.6 mg/dL (8.5-10.1); CREATININE 2.4 mg/dL (0.7-1.3); GFR 32.7; MAGNESIUM 1.9 mg/dL (1.8-2.4); PHOSPHORUS 3.7 mg/dL (2.6-4.7); POTASSIUM 4.4 mmol/L (3.5-5.1); URIC ACID 7.1 mg/dL (3.5-7.2)
[2021-05-05 12:47] LABS: BACTERIA,URINE MANY /HPF (0-FEW); BILIRUBIN,URINE NEG (NEG); CLARITY,URINE HAZY; COLOR,URINE YELLOW; GLUCOSE,URINE NEG (NEG); NITRITE,URINE NEG (NEG); RBC,URINE 0 /HPF (0-2); SQUAMOUS EPITHELIAL CELL,UR MOD /LPF; UROBILINOGEN,URINE 0.2 mg/dL (0.2 mg/dL)
[2021-05-06 01:07] LABS: MICROALB RD UR 52.6 ug/mL (Not Estab.)
[2021-05-06 12:09] LABS: CREATININE PTH 2.32 mg/dL (0.76-1.27); PTH INTACT 103 pg/mL (15-65)
[2021-05-06 15:19] LABS: CREATININE,RANDOM URINE 150.8 mg/dL (Not Establ.)
== END ==
LOC: LAB 10:08
PROVIDERS: ATTEND Internal Medicine Nephrology
DX: I12.9 Hypertensive chronic kidney disease with stage 1 through stage 4 chronic kidney disease, or unspecified chronic kidney disease (principal); N18.32 Chronic kidney disease, stage 3b; E13.319 Other specified diabetes mellitus with unspecified diabetic retinopathy without macular edema; E11.21 Type 2 diabetes mellitus with diabetic nephropathy; E11.22 Type 2 diabetes mellitus with diabetic chronic kidney disease; N17.9 Acute kidney failure, unspecified; Z68.30 Body mass index [BMI] 30.0-30.9, adult
CPT/HCPCS: 80069; 81001; 82043; 82570; 83735; 83970; 84156; 84550; 87077; 87086; 87186

== ENCOUNTER 2022-02-20 16:11 | Observation (INO) | payer MEDICARE, OTHER ==
[~2022-02-20] VITALS: Ht 172.7 cm; Wt 89.5 kg
--- NOTE | 2022-02-20 16:31 | PHYS DOC ---
Past History Past Medical History: Diabetes, Glaucoma, Hypertension (AVELINA MATA DO) Past Surgical History: No Surgical History (AVELINA MATA DO) Alcohol Use: None Drug Use: None (AVELINA MATA DO) General Adult EDM: Chief Complaint: ALTERED MENTAL STATUS HPI: HPI: 71-year-old male presents from his care facility via EMS for altered mental status. The patient was reported to be unable to stand up on his own in his room. This is unusual as he gets around with a walker without difficulty. The facility checked his blood pressure and found it to be low. They were concerned so they called an ambulance. On arrival, the patient tells me he has no complaints. He denies any pain or other concerns. No reported fever or chills. (AVELINA MATA DO) Review of Systems: Review of Systems: Constitutional: Denies fever or chills Eyes: Denies change in visual acuity HENT: Denies nasal congestion or sore throat Respiratory: Denies cough or shortness of breath Cardiovascular: Denies chest pain or edema GI: Denies abdominal pain, nausea, vomiting, bloody stools or diarrhea : Denies dysuria Musculoskeletal: Denies back pain or joint pain Integument: Denies rash Neurologic: AMS. Denies headache, focal weakness or sensory changes Endocrine: Denies polyuria or polydipsia Lymphatic: Denies swollen glands Psychiatric: Denies depression or anxiety (AVELINA MATA DO) Allergies: Allergies: Allergies Coded Allergies Type Severity Reaction Last Updated Verified No Known Drug Allergies 12/12/18 No (AVELINA MATA DO) Physical Exam: PE: Constitutional: Well developed, well nourished, no acute distress, non-toxic appearance. [] HENT: Normocephalic, atraumatic, bilateral external ears normal, oropharynx moist, no oral exudates, nose normal. [] Eyes: PERRLA, EOMI, conjunctiva normal, no discharge. [] Neck: Normal range of motion, no tenderness, supple, no stridor. [] Cardiovascular: Heart rate regular rhythm, no murmur [] Lungs & Thorax: Bilateral breath sounds clear to auscultation [] Abdomen: Bowel sounds normal, soft, no tenderness, no masses, no pulsatile masses. [] Skin: Warm, dry, no erythema, no rash. [] Back: No tenderness, no CVA tenderness. [] Extremities: No tenderness, no cyanosis, no clubbing, ROM intact, no edema. [] Neurologic: Alert to person and place, normal motor function, normal sensory function, no focal deficits noted. [] Psychologic: Affect normal, judgement normal, mood normal. [] (AVELINA MATA DO) EKG: EKG: Sinus rhythm, rate 56, normal axis, no ST elevation or depression. [] (AVELINA MATA DO) Radiology/Procedures: Radiology/Procedures: [] (AVELINA MATA DO) Heart Score: C/O Chest Pain: N/A Risk Factors: Risk Factors: DM, Current or recent (<one month) smoker, HTN, HLP, family history of CAD, obesity. Risk Scores: Score 0 - 3: 2.5% MACE over next 6 weeks - Discharge Home Score 4 - 6: 20.3% MACE over next 6 weeks - Admit for Clinical Observation Score 7 - 10: 72.7% MACE over next 6 weeks - Early Invasive Strategies (AVELINA MATA DO) Course & Med Decision Making: Course & Med Decision Making Pertinent Labs and Imaging studies reviewed. (See chart for details) The patient was alert to person and place but thought the year was 2019. The patient's documentation shows he has a history of encephalopathy. The patient's labs are significant for an elevated creatinine. This is similar to previous in his chart. The patient's troponin is normal. The rest the patient's work-up is pending at this time. I am signing patient out to the night club manager at 1800. [] (AVELINA MATA DO) Dragon Disclaimer: Dragon Disclaimer: This electronic medical record was generated, in whole or in part, using a voice recognition dictation system. (AVELINA MATA DO) Departure Departure: Impression: Primary Impression: Bilateral pneumonia Additional Impressions: Dehydration Confusion Disposition: ADMITTED INPATIENT Admitting Physician: Da Flores (ADRIANA GRISSOM MD) Referrals: SHERMAN GAYTAN MD (PCP) AVELINA MATA DO February 20, 2022 16:31 ADRIANA GRISSOM MD February 20, 2022 20:49
[2022-02-20 17:34] LABS: CALCIUM 9.2 mg/dL (8.5-10.1); CREATININE 2.4 mg/dL (0.7-1.3); GFR 32.6; POTASSIUM 4.1 mmol/L (3.5-5.1)
[2022-02-20 17:40] LABS: ALBUMIN 3.1 g/dL (3.4-5.0); ALBUMIN/GLOBULIN RATIO 0.9 (1.0-1.7); TOTAL BILIRUBIN 0.3 mg/dL (0.2-1.0); TOTAL PROTEIN 6.7 g/dL (6.4-8.2)
[2022-02-20 17:50] LABS: BASO # 0.1 x10^3/uL (0.0-0.2); BASO % 1 % (0-3); EOS # 0.1 x10^3/uL (0.0-0.7); EOS % 1 % (0-3); HEMATOCRIT 38.7 % (39.0-53.0); HEMOGLOBIN 12.5 g/dL (13.0-17.5); LYMPH # 0.9 x10^3/uL (1.0-4.8); LYMPH % 7 % (24-48); MEAN CORPUSCULAR HEMOGLOBIN 28 pg (25-35); MEAN CORPUSCULAR HGB CONC 32 g/dL (31-37); MEAN CORPUSCULAR VOLUME 88 fL (79-100); MONO # 0.8 x10^3/uL (0.0-1.1); MONO % 6 % (0-9); NEUT # 11.4 x10^3uL (1.8-7.7); NEUT % 86 % (31-73); PLATELET COUNT 215 x10^3/uL (140-400); RED CELL DISTRIBUTION WIDTH 13.8 % (11.5-14.5); WHITE BLOOD COUNT 13.2 x10^3/uL (4.0-11.0)
--- NOTE | 2022-02-20 18:13 | RAD ---
EXAMINATION: XR CHEST 1V CLINICAL HISTORY: Altered mental status. EXAM DATE/TIME: 02/20/2022 4:24 PM COMPARISON: 02/07/2022 FINDINGS: Lines, Tubes, and Devices: None. Cardiomediastinal Silhouette: Normal heart size. Lungs and Pleura: Pulmonary hypoexpansion with increased bibasilar curvilinear and diffuse interstiti al opacities. No definite pleural effusion. Bones and Soft Tissues: Degenerative changes in the thoracic spine. IMPRESSION: Increased bibasilar and diffuse interstitial opacities. Electronically signed by: Cheng Aguilar DO (02/20/2022 6:11 PM) [facility]
[2022-02-20] MEDS ORDERED: IV RINGERS SOLUTION,LACTATED 1,000 ML IV ONE (19:00)
[2022-02-20 20:39] LABS: BACTERIA,URINE 0 /HPF (0-FEW); CLARITY,URINE CLEAR; COLOR,URINE YELLOW; GLUCOSE,URINE 100 mg/dL (NEG); NITRITE,URINE NEG (NEG); SQUAMOUS EPITHELIAL CELL,UR FEW /LPF; UROBILINOGEN,URINE 0.2 mg/dL (0.2 mg/dL); WBC,URINE 0 /HPF (0-4)
--- NOTE | 2022-02-20 20:49 | RAD ---
Exam Date: 02/20/2022 7:[address] THORAX WO, CT HEAD/BRAIN WO Indication: Reason: AMS / Spl. Instructions: / History: . TECHNIQUE: Head CT was performed without intravenous contrast. One or more of the following dose re duction techniques were utilized: *Automated exposure control (AEC) *Adjustment of mA and/or kV according to patient size *Use of iterative reconstruction technique *CT scan done according to ALARA, or ALARA/IMAGE GENTLY FINDINGS: The ventricles and sulci are prominent consistent with cerebral volume loss. Patchy ill-defined low attenuation areas in the subcortical and periventricular white matter bilaterally are consistent with microvascular disease. There is no evidence of acute intracranial hemorrhage, extra-axial collecti on, mass effect, midline shift, or acute territorial infarct. No lesion of the skull base or the calv arium is seen. The visualized paranasal sinuses, mastoid air cells and orbits are normal in appearanc e. IMPRESSION: No evidence for acute intracranial abnormality. Volume loss and microvascular disease. Exam Date: 02/20/2022 7:[address] THORAX WO, CT HEAD/BRAIN WO Indication: Reason: AMS / Spl. Instructions: / History: . TECHNIQUE: CT scan of the chest was performed without intravenous contrast. One or more of the fo llowing dose reduction techniques were utilized: *Automated exposure control (AEC) *Adjustment of mA and/or kV according to patient size *Use of iterative reconstruction technique *CT scan done according to ALARA, or ALARA/IMAGE GENTLY FINDINGS: There are prominent coarse reticular markings diffusely in the right lung and in the left lung base. These are nonspecific and could represent atelectasis or scarring/chronic lung disease, though infec tion is not excluded. The central airways are patent. There is no pleural effusion or pneumothorax. The visualized thyroid gland is within normal limits. No lymphadenopathy is seen. Aorta is normal in caliber with atherosclerotic calcifications. The heart is enlarged without pericardial effusion. Coronary artery calcifications are present. Images of the upper abdomen demonstrate multiple gallstones.. Degenerative changes are seen in the s pine. IMPRESSION: Prominent reticular markings diffusely in the right lung and in the left lung base are nonspecific an d may represent atelectasis or scarring/chronic lung disease, though infection is not excluded. Marisol elate clinically. Electronically signed by: Simon Polk MD (02/20/2022 8:47 PM) [id number]
[2022-02-20 22:54] VITALS: BP 160/103
[2022-02-21] MEDS ORDERED: OXYB10TA26 PO (02:47)
[2022-02-21] MEDS ORDERED: AMLO-187 PO (02:47)
[2022-02-21] MEDS ORDERED: TAMS0.4C97 PO (02:47)
[2022-02-21] MEDS ORDERED: FOLI0.8C PO (02:47)
[2022-02-21] MEDS ORDERED: INSU100I13 SQ (02:47)
[2022-02-21] MEDS ORDERED: ASPI-630 PO (02:47)
[2022-02-21] MEDS ORDERED: SITA1TAB11 PO (02:47)
[2022-02-21] MEDS ORDERED: SERT50TA PO (02:47)
[2022-02-21] MEDS ORDERED: ATOR40TA59 PO (02:47)
[2022-02-21] MEDS ORDERED: GABA600T7 PO (02:47)
[2022-02-21] MEDS ORDERED: AMOX1TAB11 PO (02:47)
[2022-02-21] MEDS ORDERED: LATA2.5D2 OU (02:47)
[2022-02-21] MEDS ORDERED: CLOP75TA PO (02:47)
[2022-02-21] MEDS ORDERED: DORZ10DR21 OS (02:47)
[2022-02-21] MEDS ORDERED: LINE600T12 PO (02:47)
[2022-02-21] MEDS ORDERED: METO50TA6 PO (02:47)
[2022-02-21] MEDS ORDERED: LISI40TA6 PO (02:47)
[2022-02-21] MEDS: IV RINGERS SOLUTION,LACTATED 1,000 ML IV SCH ×2 (03:15→13:15)
[2022-02-21 05:30] VITALS: BP 163/104
[2022-02-21 06:24] LABS: BASO # 0.1 x10^3/uL (0.0-0.2); BASO % 0 % (0-3); EOS # 0.1 x10^3/uL (0.0-0.7); EOS % 1 % (0-3); HEMATOCRIT 34.6 % (39.0-53.0); HEMOGLOBIN 11.2 g/dL (13.0-17.5); LYMPH % 15 % (24-48); MEAN CORPUSCULAR HEMOGLOBIN 28 pg (25-35); MEAN CORPUSCULAR HGB CONC 32 g/dL (31-37); MEAN CORPUSCULAR VOLUME 88 fL (79-100); MONO # 1.2 x10^3/uL (0.0-1.1); MONO % 9 % (0-9); NEUT # 9.4 x10^3uL (1.8-7.7); NEUT % 74 % (31-73); PLATELET COUNT 195 x10^3/uL (140-400); RED BLOOD COUNT 3.95 x10^6/uL (4.30-5.70); RED CELL DISTRIBUTION WIDTH 13.6 % (11.5-14.5); WHITE BLOOD COUNT 12.8 x10^3/uL (4.0-11.0)
[2022-02-21 06:29] LABS: CREATININE 2.1 mg/dL (0.7-1.3); GFR 38.1; POTASSIUM 3.6 mmol/L (3.5-5.1)
[2022-02-21] MEDS ORDERED: METOPROLOL TART IMMED RELEASE 50 MG TABLET PO SCH (09:00)
[2022-02-21] MEDS ORDERED: LINEZOLID 600 MG TABLET PO SCH (09:00)
[2022-02-21] MEDS ORDERED: DORZOLAMIDE/TIMOLOL 2%/0.5% OPHTH SOLUTION 10ML BOTTLE. OS SCH (09:00)
[2022-02-21] MEDS ORDERED: ASPIRIN CHEWABLE 81 MG TABLET. PO SCH (09:00)
[2022-02-21] MEDS ORDERED: amLODIPine BESYLATE 10 MG TABLET PO SCH (09:00)
[2022-02-21] MEDS ORDERED: SERTRALINE 50 MG TABLET. PO SCH (09:00)
[2022-02-21] MEDS ORDERED: CLOPIDOGREL BISULFATE 75 MG TABLET PO SCH (09:00)
--- NOTE | 2022-02-21 10:34 | HP ---
DATE OF SERVICE: 02/21/2022 ADMIT DATE: 02/20/2022 ATTENDING PHYSICIAN: Dr. Flores. CHIEF COMPLAINT: Altered mentation. HISTORY OF PRESENT ILLNESS: The patient is a 71-year-old gentleman with chronic medical issues. He is a longstanding patient at a local [facility]. They sent him to the ER because he had some altered mentation. Blood pressure is marginal. He still has infiltrates on chest x-ray as part of recent pneumonia. He has been on Zyvox. By the time he got here, he was back to his baseline. He has no new complaints. He was admitted for observation and continuation of his pneumonia. PAST MEDICAL HISTORY: Significant for type 2 diabetes, glaucoma, hypertension. CURRENT MEDICATIONS: Reviewed. He takes amlodipine, amoxicillin, Aspirin, Plavix, Neurontin, insulin, Zyvox orally, lisinopril, metoprolol, Zoloft, metformin, and Flomax. ALLERGIES: He has no known drug allergies. FAMILY HISTORY: Noncontributory. REVIEW OF SYSTEMS: Significant for chronic kidney disease. His baseline creatinine is somewhere around 2.2 mg/dL. All other systems reviewed and turned to be negative. PHYSICAL EXAMINATION: GENERAL: When I saw him, this is a pleasant elderly gentleman. VITAL SIGNS: Showed a blood pressure of 163/104, pulse is 80 and regular. He was afebrile, oxygen saturation 96% on room air. HEENT: Head is without trauma. Pupils are reactive. Sclerae are nonicteric. The oropharynx is clear. NECK: Supple, no bruits. There is significant keloid scarring on the anterior chest wall beneath the manubrium. LUNGS: Otherwise clear with diminished breath sounds at the bases. CARDIOVASCULAR: Regular heart tones. ABDOMEN: Soft. EXTREMITIES: Without edema. NEUROLOGIC: Focally intact. Speech is fluent. PERTINENT LABORATORY STUDIES: Repeat creatinine is down to 2.1 mg/dL, which is good for him. Hemoglobin is 11.2 g/dL, white count 12,000. Electrolytes within normal range. Potassium is 4.1 mEq. Nonfasting blood sugar 142. Cardiac enzymes negative for coronary ischemia. Transaminases were normal. Chest x-ray as noted. He had the obligatory CT of the head, which showed no evidence of intracranial abnormalities. He also had a CT chest in addition to the chest x-ray. The report indicates prominent reticular markings in the right lung and left base, nonspecific, representing atelectasis and/or recurrent pneumonia. ASSESSMENT: 1. A 71-year-old gentleman with altered mentation, improved. 2. Recent pneumonia, still not completely resolved. 3. Type 2 diabetes. 4. Chronic kidney disease stage 4. PLAN: 1. Admit to the inpatient unit. 2. Home medications reviewed. 2. Continue antibiotics. 3. I shall ascertain his code status. ESAU/LISA DR: Gurwinder TID: [id number]
[2022-02-21 11:25] VITALS: BP 160/85
[2022-02-21 12:10] VITALS: BP 163/104
--- NOTE | 2022-02-21 18:41 | DS ---
DATE OF DISCHARGE: 02/21/2022 ATTENDING PHYSICIAN: Dr. Flores. FINAL DISCHARGE DIAGNOSES: 1. Altered mentation, resolved. 2. Recent pneumonia, almost treated. 3. Chronic kidney disease, stage IV. 4. Essential hypertension. 5. Generalized debilitation. 6. Type 2 diabetes. HISTORY AND PHYSICAL: The patient is a 71-year-old gentleman from [facility]. He was hospitalized at [place] last week and sent there just 4 days ago. He had altered mentation and symptoms were very sketchy. He was admitted for evaluation. PHYSICAL EXAMINATION: Please see my dictated note. PERTINENT LABORATORY AND X-RAY STUDIES: Admission hemoglobin was 11.2 g/dL, white count 12,800. Electrolytes showed an improvement. Sodium and potassium were stable. Creatinine improved to 2.1 mg/dL. Nonfasting blood sugar 139. Serology negative for coronavirus. Urinalysis is fairly unremarkable. The obligatory CT of the head showed no acute strokes or bleeds. CT scan showed improving infiltrates, no new infiltrates identified. COURSE IN THE HOSPITAL: The patient was admitted. Home meds were continued, antibiotics were continued. He did well. He was alert and oriented and back to his baseline when I saw him. I talked with the family, the and the son, he is ready to go back to [facility]. His home meds are unchanged. They will continue his Zyvox 600 mg b.i.d. as prescribed. In addition, he will continue his amlodipine 10 mg daily, aspirin daily 81 mg, Lipitor 40 mg daily, Plavix 75 mg daily, Cosopt eyedrops, folic acid, Neurontin, insulin regular and Lantus, Zyvox 600 mg p.o. b.i.d. until complete, lisinopril 40 mg daily, metoprolol 50 mg b.i.d., oxybutynin, Zoloft, Janumet 50 and Flomax, doses unchanged. His prognosis is fair. He was discharged from our hospital in stable condition with explicit drug and followup care. EMY MCLAGUHLIN: Gurwinder TID: [id number]
[2022-02-21] MEDS ORDERED: INSULIN GLARGINE SYRINGE. SQ SCH (21:00)
[2022-02-21] MEDS ORDERED: LATANOPROST 0.005% OPHTH SOLUTION 2.5ML BOTTLE. OU SCH (21:00)
[2022-02-22] MEDS ORDERED: LINAGLIPTIN 5 MG TABLET PO SCH (09:00)
[2022-02-22] MEDS ORDERED: LISINOPRIL 20 MG TABLET PO SCH (09:00)
== END 2022-02-21 14:35 ==
LOC: ER 16:11 → ER HOLD 20:50 → INTOOBSV 20:50 → 1 SOUTH 21:00
PROVIDERS: ADMIT Hospitalist; ATTEND Hospitalist
DX: R41.82 Altered mental status, unspecified (principal); Z20.822 Contact with and (suspected) exposure to COVID-19; J18.9 Pneumonia, unspecified organism; I12.9 Hypertensive chronic kidney disease with stage 1 through stage 4 chronic kidney disease, or unspecified chronic kidney disease; N18.4 Chronic kidney disease, stage 4 (severe); E11.22 Type 2 diabetes mellitus with diabetic chronic kidney disease; H40.9 Unspecified glaucoma; E86.0 Dehydration; Z79.02 Long term (current) use of antithrombotics/antiplatelets; Z79.82 Long term (current) use of aspirin; Z79.899 Other long term (current) drug therapy; Z87.01 Personal history of pneumonia (recurrent); Z79.01 Long term (current) use of anticoagulants; Z79.4 Long term (current) use of insulin; Z79.84 Long term (current) use of oral hypoglycemic drugs
CPT/HCPCS: 36415; 70450; 71045; 71250; 80048; 80053; 81001; 82947; 83735; 84484; 85025; 87040; 87426; 93005; 96365; 96366; 99284; G0378; J1956; J7120; P9612; U0003; G0379; 99285-25